=== PATIENT | female | born 1965 | race Caucasian/White ===

== ENCOUNTER 2021-12-14 15:45 | Observation (INO) | payer BC ==
[~2021-12-14] VITALS: Ht 172.7 cm; Wt 88.9 kg
--- NOTE | ~2021-12-14 | HC ---
[facility] [place] [address] CONSULTATION Name: BHARGAV COLES Room #: 459-[facility] M.RShell#: [id number] Admission: 12/14/21 Attend Phys: Melita Latham Discharge: Date of : 61 Report #: [id number] THIS REPORT FOR: cc: Charlotte Newman MD, Pamela MD Khosla,Son Rangel MD ~ DATE OF SERVICE: 12/15/2021 HISTORY OF PRESENT ILLNESS: This is a 56-year-old female patient who was admitted with numbness of the left arm. It was a subjective numbness. It happened rather suddenly when she was driving. She described most of the numbness in the distribution of the left C6-C7 root. Numbness has become better, but it has not resolved. When she came in, her blood sugar was 404, then it decreased to 310. She has a prior history of titanium rods in the neck area. The surgery was done 2 years ago at [facility]. Most of the symptoms she was having that time was related to the neck. She did not have any significant arm symptoms at that time. REVIEW OF SYSTEMS: Positive for multiple other things. She has a history of anxiety. She smokes every day. She is a diabetic, hypertensive. She denies any prior history of stroke. This was a relevant 14-point review of systems. PAST MEDICAL HISTORY: Negative for any early age stroke. FAMILY HISTORY: Unremarkable. SOCIAL HISTORY: She says she drinks only occasionally, but she does smoke. PHYSICAL EXAMINATION: She is alert, responsive, able to follow simple and complex commands. Her speech looks intact. Cranial nerve examination 2-12 does not show any definite abnormality. There is no meningeal sign. She has normal sensation in all 4 extremities except for subjective loss of touch somewhere around C7 distribution and it is pretty localized. Reflexes are symmetrical. Plantars are mute. Position sense is intact. There is no ataxia. I could not look at the patient's fundus. She is moderately built. Vision and hearing is adequate. She has no dysmorphic features of eyes, ears and face. There is no evidence of vascular insufficiency. Vital Signs: Blood pressure is 111/71, respirations 18, pulse is 86, temperature is 97.7. Cardiac examination is unremarkable. Respiratory examination shows no respiratory difficulty. LABORATORY DATA: White count is 5.7. Blood sugar is up as described above. IMPRESSION: The patient's symptoms are most likely secondary to either cervical radiculopathy secondary to her prior C-spine problems which may have become worse while driving. It is also possible she has some diabetic related neuropathy, but the symptoms are not very typical. Because of the normal MRI [facility] [address] [place] [address] CONSULTATION Name: BHARGAV COLES Room #: 459-[facility] M.RShell#: [id number] Admission: 12/14/21 Attend Phys: Melita Latham Discharge: Date of : 61 Report #: [id number] and because of the topographical distribution of the patient's symptoms, it is unlikely it is any MITTEN SEWER event. RECOMMENDATIONS: 1. She already had an MRI of the brain, which is unremarkable. 2. MRI of the C-spine is scheduled. If that is unremarkable and the rest of the workup, which is pending is also unremarkable, then from neurological perspective, she can be dismissed. She should take an aspirin because she has multiple vascular risk factor. I discussed all of it with the patient in detail and she wants to follow this plan. Thank you very much for this referral. By: [id number] Son Perez MD /nt
[2021-12-14 15:47] VITALS: BP 110/80
[2021-12-14 16:18] LABS: ABSOLUTE NEUTROPHILS 2.3 thou/uL (1.4-8.2); BASOPHILS 0.8 % (0.0-2.0); EOSINOPHILS 6.2 % (0.0-3.0); LYMPHOCYTES 44.3 % (24.0-44.0); MCHC 34.2 g/dL (28.0-37.0); MCV 90.7 fL (80.0-100.0); MONOCYTES 8.7 % (1.0-8.0); PLATELET COUNT 275 thou/uL (150-400); RBC 4.53 mil/uL (4.20-5.00); RDW 12.8 % (10.5-14.5); WBC 5.7 thou/uL (4.0-11.0)
[2021-12-14 16:29] LABS: CALCIUM 9.5 mg/dL (8.5-10.1); CREATININE 1.2 mg/dL (0.6-1.0); POTASSIUM 4.4 mmol/L (3.5-5.1)
--- NOTE | 2021-12-14 16:34 | EKG ---
[address] [address] ELECTROCARDIOGRAM REPORT Name: BHARGAV COLES Room #: [facility]..#: [id number] Admission: Attend Phys: Discharge: Date of : 61 Report #: [id number] [facility] ED Test Date: 2021-12-14 Test Time: 15:56:28 Pat Name: BHARGAV COLES Department: Room: Gender: Drilling Supervisor: ELIZABETH : 1965 Requested By: Pati Miles Order Number: [id number] MD: Dong Tony Measurements Intervals [place] Rate: 98 P: 74 DC: 128 QRS: 12 QRSD: 96 T: 59 QT: 358 QTc: 458 Interpretive Statements Sinus rhythm Normal tracing No previous ECG available for comparison Electronically Signed On 12-14-2021 16:34:41 DIRECTOR OF NURSING by Dong Tony [email or web address] <ELECTRONICALLY SIGNED> By: Dong Tony MD, [facility] 12/14/21 1634 [id number] [id number] Dong Tony MD, FACC /EPI
[2021-12-14 16:40] LABS: ALBUMIN 3.5 g/dL (3.4-5.0); TOTAL BILIRUBIN 0.2 mg/dL (0.2-1.0); TOTAL PROTEIN 6.6 g/dL (6.4-8.2)
--- NOTE | 2021-12-14 19:10 | NUR ---
report given to JIM Cuello
[2021-12-14] MEDS ORDERED: PROAIR HFA8.5 GM INH (19:32)
[2021-12-14] MEDS ORDERED: NORCO 10-325 T1 EACH PO (19:32)
[2021-12-14] MEDS ORDERED: ALPRAZOLAM1 MG PO (19:32)
[2021-12-14] MEDS ORDERED: HUMALOG100 UNIT/1 SUBQ (19:37)
[2021-12-14] MEDS ORDERED: HUMULIN N100 UNIT/1 SUBQ (19:38)
[2021-12-14] MEDS ORDERED: ROPINIROLE HCL2 MG PO (19:38)
[2021-12-14] MEDS ORDERED: LISINOPRIL5 MG PO (19:38)
[2021-12-14] MEDS ORDERED: SINGULAIR 10 MG10 M1 PO (19:38)
[2021-12-14 21:11] LABS: CHOLESTEROL 163 mg/dL (<200); HDL CHOLESTEROL 36 mg/dL (>40); LDL CHOLESTEROL 58 mg/dL (<100); TC:HDL 4.5 Ratio (Not establshd); TRIGLYCERIDE 348 mg/dL (<150); VLDL 70 mg/dL (<40)
[2021-12-14 21:28] LABS: SERUM ASSESSMENT Clear
[2021-12-14 23:33] VITALS: BP 150/82
[2021-12-15 00:32] VITALS: BP 118/71
--- NOTE | 2021-12-15 01:28 | NUR ---
PT ADMITTED FROM EDWITH LEFT ARM WEAKNESS.ARRIVED TO UNIT VIA W/C ACCOMPANIED BY THE STAFF.PT IS A/OX4.VSS.ORIENTD TO RM AND UNIT ACTIVITIES.PT DENIES ANY QUESTIONS OR CONCERNS.REVIEWED POC AND MEDS WITH PT.INAGREEMENT WITH POC.ADMISSION ASSESSMENT COMPLETED DOCUMENTED.DIE MACHINE OPERATOR NOTIFIED TO RESUME HOME MEDS.PT RESTING IN BED IN NO ACUTE DISTRESS AT THIS TIME.WILL CONT TO MONITOR PER POC.
[2021-12-15] MEDS ORDERED: NOVOLIN 70100 UNIT/1 SUBQ (03:47)
[2021-12-15] MEDS ORDERED: IPRAT-ALBUT 0.5-3 ML INH (03:50)
[2021-12-15] MEDS ORDERED: PREDNISONE 20 M20 MG PO (03:51)
[2021-12-15] MEDS ORDERED: TIZANIDINE HCL4 M2 PO (03:52)
[2021-12-15] MEDS ORDERED: TESSALON PERLE100 MG PO (03:53)
[2021-12-15 05:15] VITALS: BP 130/79
[2021-12-15 06:44] LABS: CALCIUM 8.3 mg/dL (8.5-10.1); CREATININE 1.1 mg/dL (0.6-1.0); POTASSIUM 3.6 mmol/L (3.5-5.1)
[2021-12-15 10:03] VITALS: BP 111/71
[2021-12-15] MEDS ORDERED: GABAPENTIN 100100 MG PO (10:15)
[2021-12-15] MEDS ORDERED: FREESTYLE LIBR1 EAC2 MISCELL (10:17)
--- NOTE | 2021-12-15 13:05 | NUR ---
Pt ADMITTED FOR L ARM NUMBNESS AND IS CURRENTLY UP AD RADHA. PT LIVES IN MOBILE HOME WITH FIANCE AND ROOMMATE AND HAS 5 STAIRS OUTSIDE. SHE STATES SHE IS FEELING MUCH BETTER AND N/T IS ONLY IN HANDS NOW. Pt POLITELY REFUSED PT STATING SHE DID NOT THINK IT WAS NECESSARY. Pt HAS BEEN D/C FROM PT.
--- NOTE | 2021-12-15 13:09 | NUR ---
I have reviewed the documentation by YUSRA GALLEGOS from 12/15/21 to 12/15/21 and I concur with it. BALJINDER BRANDT, PT, DPT
--- NOTE | 2021-12-15 14:27 | NUR ---
PT ADMITTED RELATED TO L ARM NUMBNESS. CM REVIEWED CHART AND SPOKE WITH CARE TEAM. CM MET WITH PT AND SIG MARY NESBITT AT BEDSIDE THIS DAY. PT APPEARED TO BE A&O X4. CM ROLE INTRODUCED. PT INDICATED SHE LIVES IN A HOUSE WITH HER SIG OTHER WITH 5 STEPS TO ENTER AND NO STEPS INSIDE. PT INDICATED SHE HAD BEEN INDEPENDENT WITH GAIT AND ADLS CLIENT SERVICES ACCOUNT MANAGER. PT INDICATED HER PCP IS DR. DEREJE VELOZ. PT INDICATED SHE PLANS TO RETURN HOME ONCE MEDICALLY STABLE. PT WAS TO HAVE AN MRI THIS DAY. CARE TEAM INDICATED PT WOULD LIKELY BE ABLE TO DC HOME SHORTLY AFTER HOME TO SELF CARE. NO OTHER CM INTERVENTION INDICATED. CASE CLOSED.
[2021-12-15 16:57] VITALS: BP 111/71
[2021-12-15 18:08] VITALS: BP 111/71
--- NOTE | 2021-12-15 19:39 | NUR ---
PATIENT LEFT AT 1922 ESCOTED BY THIS NURSE VIA WHEELCHAIR. PATIENT DENIED PAIN OR DISCOMFORT. IN REPORTDAY SHIFT NURSE DID ALL DISCHARGE PAPER WORK.
[2021-12-16 07:09] LABS: GLYCOHEMOGLOBIN (HGB A1C) 11.1 % (4.8-5.6)
== END 2021-12-15 19:23 | disposition home or self-care (01) ==
LOC: ER 15:45 → 4W 18:47 → EROBS 18:47 → 4W 23:37
PROVIDERS: Emergency Medicine; Nurse Practitioner Family; ADMIT Hospitalist; ATTEND Hospitalist
DX: R20.0 Anesthesia of skin (principal); Z20.822 Contact with and (suspected) exposure to COVID-19; M79.7 Fibromyalgia; M54.9 Dorsalgia, unspecified; M19.90 Unspecified osteoarthritis, unspecified site; I10 Essential (primary) hypertension; E78.5 Hyperlipidemia, unspecified; E11.9 Type 2 diabetes mellitus without complications; J45.909 Unspecified asthma, uncomplicated; Z86.19 Personal history of other infectious and parasitic diseases; E11.22 Type 2 diabetes mellitus with diabetic chronic kidney disease; I12.9 Hypertensive chronic kidney disease with stage 1 through stage 4 chronic kidney disease, or unspecified chronic kidney disease; N18.2 Chronic kidney disease, stage 2 (mild); K21.9 Gastro-esophageal reflux disease without esophagitis; F17.210 Nicotine dependence, cigarettes, uncomplicated; Z79.899 Other long term (current) drug therapy